=== PATIENT | female | born 1945 ===

== ENCOUNTER → 2018-05-03 | Outpatient (CLI) | payer MEDICARE, OTHER ==
[~2018-05-03] MED LIST: ATOR10TA PO; FOLI-17 PO; IBUP-1623 PO; LISI-170 PO; PREG75CA PO
[2018-05-03 12:22] LABS: ALBUMIN 3.5 g/dL (3.4-5.0); ANION GAP 6 mmol/L (5-15); CALCIUM 9.7 mg/dL (8.5-10.1); CHLORIDE 110 mmol/L (98-107)
[2018-05-03 12:26] LABS: ALANINE AMINOTRANSFERASE 21 U/L (12-78); ALKALINE PHOSPHATASE 115 U/L (45-117); BILIRUBIN,TOTAL 0.5 mg/dL (0.2-1.0); CREATININE 0.65 mg/dL (0.55-1.02)
== END | disposition home or self-care (01) ==
LOC: STAR 10:46
PROVIDERS: ATTEND Surgery
DX: Z01.818 Encounter for other preprocedural examination (principal)
CPT/HCPCS: 36415; 80053; 93005

== ENCOUNTER 2018-05-09 07:33 | Day surgery (SDC) | payer MEDICARE, OTHER ==
[~2018-05-09] VITALS: Ht 142.2 cm; Wt 42.8 kg
[~2018-05-09 07:33] MED LIST changes: +BUPIVACAINE/PF-EPI 0.5% 1:200K ONE
[2018-05-09] MEDS ORDERED: LACTATED RINGERS 1,000 ML IV SCH (08:16)
[2018-05-09 08:20] VITALS: BP 166/90
[2018-05-09] MEDS ORDERED: FENTANYL PF 100 MCG/2ML ONE (09:15)
[2018-05-09] MEDS ORDERED: BACITRACIN 50,000 UNIT ONE (10:13)
[2018-05-09] MEDS ORDERED: ALBUTEROL SULFATE 2.5 MG/3 ML NPPB PRN (11:00)
[2018-05-09] MEDS ORDERED: OXYcodone 5 MG/5 ML ORAL.SOL UDC PO PRN (11:00)
[2018-05-09] MEDS ORDERED: ACETAMINOPHEN 325 MG TABLET PO PRN (11:00)
[2018-05-09] MEDS ORDERED: MORPHINE SULFATE 4 MG/ML, 1ML IVPush PRN (11:00)
[2018-05-09] MEDS ORDERED: FENTANYL PF 100 MCG/2ML IV PRN (11:00)
[2018-05-09] MEDS ORDERED: ONDANSETRON 2MG/ML, 2ML ONE (11:03)
[2018-05-09] MEDS ORDERED: EPHEDRINE 50 MG/ML, 1ML ONE (11:03)
[2018-05-09] MEDS ORDERED: CEFAZOLIN 1,000 MG ONE (11:03)
[2018-05-09] MEDS ORDERED: PROPOFOL 10 MG/ML, 20ML ONE (11:03)
[2018-05-09] MEDS ORDERED: DEXAMETHASONE 4 MG/ML, 1ML ONE (11:03)
[2018-05-09] MEDS ORDERED: OXYcodone 5 MG/5 ML ORAL.SOL UDC ONE (11:16)
[2018-05-09] MEDS ORDERED: ACETAMINOPHEN 650 MG/20.3 ML UDC ONE (11:16)
== END 2018-05-09 14:40 | disposition home or self-care (01) ==
LOC: OUT 07:33
PROVIDERS: ATTEND Surgery
DX: K40.90 Unilateral inguinal hernia, without obstruction or gangrene, not specified as recurrent (principal); E78.00 Pure hypercholesterolemia, unspecified; I10 Essential (primary) hypertension; Z87.39 Personal history of other diseases of the musculoskeletal system and connective tissue; Z98.890 Other specified postprocedural states; Z72.89 Other problems related to lifestyle
CPT/HCPCS: 49505; C1781; J0690; J1100; J2405; J2704; J3010; J7120